=== PATIENT | female | born 1985 | race Caucasian/White ===

== ENCOUNTER 2021-01-12 22:16 | Emergency (ER) | payer OTHER ==
[~2021-01-12] VITALS: Ht 165.1 cm; Wt 61.2 kg
[2021-01-12] MEDS: IV NORMAL SALINE 1,000ML 1,000 ML IV ONE (23:29)
[2021-01-12] MEDS: ONDANSETRON PF 4 MG/2 ML VIAL. IVP ONE (23:29)
[2021-01-12] MEDS: FAMOTIDINE 20 MG/2 ML VIAL IVP ONE (23:30)
[2021-01-12] MEDS: KETOROLAC 15 MG/ML VIAL. IVP ONE (23:30)
[2021-01-12 23:37] LABS: BASO % 1 % (0-3); CALCIUM 8.9 mg/dL (8.5-10.1); CREATININE 0.5 mg/dL (0.6-1.0); EOS # 0.1 x10^3/uL (0.0-0.7); EOS % 3 % (0-3); GFR 140.4; HEMATOCRIT 36.7 % (36.0-47.0); HEMOGLOBIN 12.6 g/dL (12.0-15.5); LYMPH # 1.2 x10^3/uL (1.0-4.8); LYMPH % 22 % (24-48); MEAN CORPUSCULAR HEMOGLOBIN 32 pg (25-35); MEAN CORPUSCULAR HGB CONC 34 g/dL (31-37); MEAN CORPUSCULAR VOLUME 92 fL (79-100); MONO # 0.5 x10^3/uL (0.0-1.1); MONO % 9 % (0-9); NEUT # 3.5 x10^3uL (1.8-7.7); NEUT % 66 % (31-73); PLATELET COUNT 180 x10^3/uL (140-400); POTASSIUM 3.6 mmol/L (3.5-5.1); RED BLOOD COUNT 3.97 x10^6/uL (3.50-5.40); WHITE BLOOD COUNT 5.3 x10^3/uL (4.0-11.0)
[2021-01-12] MEDS ORDERED: IOHEXOL 240 MG/ML 50ML VIAL. ONE (23:38)
[2021-01-12 23:43] LABS: ALBUMIN/GLOBULIN RATIO 1.3 (1.0-1.7); TOTAL BILIRUBIN 0.2 mg/dL (0.2-1.0)
[2021-01-12 23:45] LABS: BACTERIA,URINE 0 /HPF (0-FEW); BILIRUBIN,URINE NEG (NEG); CLARITY,URINE CLEAR; COLOR,URINE YELLOW; GLUCOSE,URINE NEG (NEG); NITRITE,URINE NEG (NEG); RBC,URINE 0 /HPF (0-2); SQUAMOUS EPITHELIAL CELL,UR FEW /LPF; UROBILINOGEN,URINE 0.2 mg/dL (0.2 mg/dL); WBC,URINE RARE /HPF (0-4)
[2021-01-12] MEDS ORDERED: CONTRAST GIVEN. MC PRN (23:45)
--- NOTE | 2021-01-13 00:14 | PHYS DOC ---
Past History Additional Past Medical Histor: Brain tumor, complex partial seizures Past Surgical History: Other Additional Past Surgical Histo: Brain tumor removed - 2013 Smoking: Non-smoker Alcohol Use: None Drug Use: None General Adult EDM: Chief Complaint: ABDOMINAL PAIN HPI: HPI: 35-year-old female presents with 2-day history of right-sided abdominal discomfort with associated nausea. Denies known sick contacts. Denies fever or chills. Reports last p.o. at 1700. Patient reports does not have an appetite. Denies known exposure to COVID-19. Patient has received Moderna COVID-19 vaccinations x2. Reports having more solid stool today. Concerned for possible constipation. Denies taking any medications prior to arrival for pain. Review of Systems: Review of Systems: Constitutional: Denies fever or chills Eyes: Denies redness or eye pain HENT: Denies nasal congestion or sore throat Respiratory: Denies cough or shortness of breath Cardiovascular: Denies chest pain or palpitations GI: Reports right sided abdominal pain, constipation, and nausea; denies vomiting : Denies dysuria or hematuria Musculoskeletal: Denies back pain or joint pain Integument: Denies rash or skin lesions Neurologic: Denies headache, focal weakness or sensory changes Complete systems were reviewed and found to be within normal limits, except as documented in this note. Current Medications: Current Meds: Current Medications Medications (Trade) Dose Ordered Sig/Prabhakar Start Time Stop Time Status Last Admin Dose Admin Famotidine (Pepcid Vial) 20 mg 1X ONCE 01/12/21 23:30 01/12/21 23:31 DC 01/12/21 23:30 20 MG Info (Do NOT chart on this entry -- for MONITORING) 1 each PRN DAILY PRN 01/12/21 23:45 01/14/21 23:44 Iohexol (Omnipaque 240 Mg/ml) 50 ml STK-MED ONCE 01/12/21 23:38 01/12/21 23:38 DC Iohexol (Omnipaque 300 Mg/ml) 75 ml 1X ONCE 01/12/21 23:45 01/12/21 23:46 DC Ketorolac Tromethamine (Toradol 15mg Vial) 15 mg 1X ONCE 01/12/21 23:30 01/12/21 23:31 DC 01/12/21 23:30 15 MG Ondansetron HCl (Zofran) 4 mg 1X ONCE 01/12/21 23:30 01/12/21 23:31 DC 01/12/21 23:29 4 MG Sodium Chloride 1,000 ml @ 1,000 mls/hr 1X ONCE 01/12/21 23:30 01/13/21 00:29 01/12/21 23:29 1,000 MLS/HR Allergies: Allergies: Allergies Coded Allergies Type Severity Reaction Last Updated Verified Penicillins Allergy Unknown 01/12/21 Yes Physical Exam: PE: Constitutional: Well developed, well nourished, no acute distress, non-toxic appearance HENT: Normocephalic, atraumatic Eyes: Conjunctiva normal, no discharge Neck: Normal range of motion, supple Lungs & Thorax: No respiratory distress, equal chest rise and fall Abdomen: Soft, RLQ tenderness, McBurney's point positive, negative psoas sign Skin: Warm, dry, no erythema, no rash Back: No tenderness, no CVA tenderness Extremities: No tenderness, ROM intact, no edema Neurologic: Alert and oriented X 3, no focal deficits noted Psychologic: Affect normal, judgment normal Current Patient Data: Labs: Laboratory Tests Test 01/12/21 22:39 01/12/21 22:55 01/12/21 23:05 Urine Collection Type Unknown Urine Color Yellow Urine Clarity Clear Urine pH 7.5 Urine Specific Mccurtain 1.015 Urine Protein Neg (NEG-TRACE) Urine Glucose (UA) Neg mg/dL (NEG) Urine Ketones (Stick) Neg mg/dL (NEG) Urine Blood Trace (NEG) Urine Nitrite Neg (NEG) Urine Bilirubin Neg (NEG) Urine Urobilinogen Dipstick 0.2 mg/dL (0.2 mg/dL) Urine Leukocyte Esterase Neg (NEG) Urine RBC 0 /HPF (0-2) Urine WBC Rare /HPF (0-4) Urine Squamous Epithelial Cells Few /LPF Urine Bacteria 0 /HPF (0-FEW) White Blood Count 5.3 x10^3/uL (4.0-11.0) Red Blood Count 3.97 x10^6/uL (3.50-5.40) Hemoglobin 12.6 g/dL (12.0-15.5) Hematocrit 36.7 % (36.0-47.0) Mean Corpuscular Volume 92 fL (79-100) Mean Corpuscular Hemoglobin 32 pg (25-35) Mean Corpuscular Hemoglobin Concent 34 g/dL (31-37) Red Cell Distribution Width 13.0 % (11.5-14.5) Platelet Count 180 x10^3/uL (140-400) Neutrophils (%) (Auto) 66 % (31-73) Lymphocytes (%) (Auto) 22 % (24-48) L Monocytes (%) (Auto) 9 % (0-9) Eosinophils (%) (Auto) 3 % (0-3) Basophils (%) (Auto) 1 % (0-3) Neutrophils # (Auto) 3.5 x10^3uL (1.8-7.7) Lymphocytes # (Auto) 1.2 x10^3/uL (1.0-4.8) Monocytes # (Auto) 0.5 x10^3/uL (0.0-1.1) Eosinophils # (Auto) 0.1 x10^3/uL (0.0-0.7) Basophils # (Auto) 0.0 x10^3/uL (0.0-0.2) Sodium Level 131 mmol/L (136-145) L Potassium Level 3.6 mmol/L (3.5-5.1) Chloride Level 96 mmol/L (98-107) L Carbon Dioxide Level 31 mmol/L (21-32) Anion Gap 4 (6-14) L Blood Urea Nitrogen 10 mg/dL (7-20) Creatinine 0.5 mg/dL (0.6-1.0) L Estimated GFR (Cockcroft-Gault) 140.4 BUN/Creatinine Ratio 20 (6-20) Glucose Level 95 mg/dL (70-99) Calcium Level 8.9 mg/dL (8.5-10.1) Magnesium Level 2.0 mg/dL (1.8-2.4) Total Bilirubin 0.2 mg/dL (0.2-1.0) Aspartate Amino Transferase (AST) 13 U/L (15-37) L Alanine Aminotransferase (ALT) 22 U/L (14-59) Alkaline Phosphatase 59 U/L (46-116) Total Protein 7.0 g/dL (6.4-8.2) Albumin 4.0 g/dL (3.4-5.0) Albumin/Globulin Ratio 1.3 (1.0-1.7) Lipase 143 U/L (73-393) POC Urine HCG, Qualitative hcg negative (Negative) Vital Signs: Vital Signs Date Time Temp Pulse Resp B/P (MAP) Pulse Ox O2 Delivery O2 Flow Rate FiO2 01/13/21 00:01 62 16 116/81 (93) 100 Room Air 01/12/21 22:38 97.6 EKG: EKG: [] Radiology/Procedures: Radiology/Procedures: PROCEDURE: CT ABD PELV W/ORAL&IV CONTRAST EXAM: CT Abdomen and Pelvis with IV contrast CLINICAL HISTORY: Reason: RLQ sided abdominal pain, eval for acute appendicitis COMPARISON: none TECHNIQUE: Helical CT of the abdomen and pelvis was performed following the administration of intravenous contrast. Axial, coronal and sagittal reformatted images were generated. PQRS compliance statement - One or more of the following individualized dose reduction techniques were utilized for this study: 1. Automated exposure control 2. Adjustment of the mA and/or kV according to patient size 3. Use of iterative reconstruction technique FINDINGS: Lower Chest: Lung bases are clear. Abdomen and Pelvis: Mild periportal edema. Hepatic dome cyst. Hepatomegaly. Spleen is unremarkable. Adrenal glands are normal. Symmetric nephrograms. No focal renal lesion. No hydronephrosis. No hydroureter. IUD is seen within the uterus. Bladder is unremarkable. There is thickening/dilation of the appendix with periappendiceal infiltration. Associated para appendiceal infiltration is seen. No small or large bowel dilatation. No bowel obstruction. No abdominal or pelvic lymphadenopathy. No abdominal pelvic ascites. Bones: No aggressive osseous lesion is seen. IMPRESSION: Thickening and dilation of the appendix with periappendiceal infiltration consistent with acute appendicitis. Periportal edema is nonspecific. Findings discussed with Dr. Weinstein at 01/13/2021 1:15 AM. FOR INTERNAL CODING PURPOSES RESULT CODE: (C) Electronically signed by: Aayush Prasad MD (01/13/2021 1:17 AM) LISS Heart Score: C/O Chest Pain: N/A Course & Med Decision Making: Course & Med Decision Making Pertinent Labs and Imaging studies reviewed. (See chart for details) Patient presents with 2-day history of right-sided abdominal discomfort with associated nausea. There was concern for possible constipation per patient. Afebrile. Significant tenderness noted to right lower quadrant. Cannot exclude acute appendicitis. Labs obtained and posted to chart. WBC within normal limits. UA without signs of infection. Urine negative. Symptomatic treatment provided with Toradol and Zofran with interval improvement of symptoms. IV fluid hydration given. CT abdomen/pelvis obtained with findings consistent for acute appendicitis without perforation. Empiric antibiotic given. Patient requiring transfer to facility with general surgery capability. Discussed with nursing supervisor dog license officer at [facility] who reports no bed availability at this time. Utilize transfer line. Dr. Saskia Nagel (General Surgery) in agreement with transfer to for admission. Discussed findings and plan with patient and spouse, who acknowledge understanding and agreement. Roger Disclaimer: Roger Disclaimer: This electronic medical record was generated, in whole or in part, using a voice recognition dictation system. Departure Departure: Impression: Primary Impression: Acute appendicitis Qualified Codes: K35.80 - Unspecified acute appendicitis Disposition: 02 [facility] (- Dr. Sheridan Nagel (surgery) accept ing) Condition: STABLE Referrals: PCP,UNKNOWN (PCP) Critical Care Time Critical care time was 30 minutes which includes time at bedside, spent in discussion of patient's care with specialists and/or family members, with interpretation of laboratory and/or radiological studies and is exclusive of procedures. YUSUF WEINSTEIN DO Jan 13, 2021 00:14
[2021-01-13] MEDS: IOHEXOL 300 MG/ML 75 ML VIAL. IV ONE (00:40)
--- NOTE | 2021-01-13 01:20 | RAD ---
EXAM: CT Abdomen and Pelvis with IV contrast CLINICAL HISTORY: Reason: RLQ sided abdominal pain, eval for acute appendicitis COMPARISON: none TECHNIQUE: Helical CT of the abdomen and pelvis was performed following the administration of intrave nous contrast. Axial, coronal and sagittal reformatted images were generated. PQRS compliance statement - One or more of the following individualized dose reduction techniques wer e utilized for this study: 1. Automated exposure control 2. Adjustment of the mA and/or kV according to patient size 3. Use of iterative reconstruction technique FINDINGS: Lower Chest: Lung bases are clear. Abdomen and Pelvis: Mild periportal edema. Hepatic dome cyst. Hepatomegaly. Spleen is unremarkable. Adrenal glands are no rmal. Symmetric nephrograms. No focal renal lesion. No hydronephrosis. No hydroureter. IUD is seen wi thin the uterus. Bladder is unremarkable. There is thickening/dilation of the appendix with periappendiceal infiltration. Associated para appen diceal infiltration is seen. No small or large bowel dilatation. No bowel obstruction. No abdominal o r pelvic lymphadenopathy. No abdominal pelvic ascites. Bones: No aggressive osseous lesion is seen. IMPRESSION: Thickening and dilation of the appendix with periappendiceal infiltration consistent with acute appen dicitis. Periportal edema is nonspecific. Findings discussed with Dr. Reyes at 01/13/2021 1:15 AM. FOR INTERNAL CODING PURPOSES RESULT CODE: (C) Electronically signed by: Aayush Prasad MD (01/13/2021 1:17 AM) [facility]
[2021-01-13] MEDS ORDERED: IV NORMAL SALINE 50ML 50 ML ONE (02:22)
[2021-01-13] MEDS ORDERED: CEFEPIME HCL 1 GM VIAL ONE (02:22)
[2021-01-13] MEDS: CEFEPIME HCL 1 GM in IV NORMAL SALINE 50ML 50 ML IV ONE (02:27)
[2021-01-13 03:01] VITALS: BP 118/76
[2021-01-13] MEDS ORDERED: CEFEPIME HCL 1 GM in IV NORMAL SALINE 50ML 50 ML IV SCH (08:00)
== END 2021-01-13 03:42 | disposition short-term general hospital (02) ==
LOC: ER 22:16
DX: K35.80 Unspecified acute appendicitis (principal); Z88.0 Allergy status to penicillin; Z20.822 Contact with and (suspected) exposure to COVID-19
CPT/HCPCS: 36415; 74177; 80053; 81001; 81025; 83690; 83735; 85025; 87426; 96361; 96365; 96367; 96375; 99285; C9803; J0692; J1885; J2405; J3010; J3490; J7030; Q9967; U0003

== ENCOUNTER 2021-09-02 19:24 | Emergency (ER) | payer OTHER ==
[~2021-09-02] VITALS: Ht 165.1 cm; Wt 56.7 kg
[2021-09-02 19:50] VITALS: BP 135/78
--- NOTE | 2021-09-02 19:57 | PHYS DOC ---
Past History Additional Past Medical Histor: Brain tumor, complex partial seizures Past Surgical History: Other Additional Past Surgical Histo: Brain tumor removed - 2012 Smoking: Non-smoker Alcohol Use: None Drug Use: None General Adult EDM: Chief Complaint: CONGESTION HPI: HPI: Patient is a 36-year-old female who presents to the emergency department for nasal congestion, chest congestion, nonproductive cough, shortness of breath, nausea and sore throat that started 3 days ago. Patient had a negative at-home COVID test today. [place]. Patient denies any fevers, vomiting. Review of Systems: Review of Systems: Constitutional: See HPI HENT: See HPI Respiratory: See HPI GI: See HPI Allergies: Allergies: Allergies Coded Allergies Type Severity Reaction Last Updated Verified Penicillins Allergy Unknown 01/12/21 Yes Physical Exam: PE: Constitutional: Well developed, well nourished, no acute distress, non-toxic appearance. [] HENT: Normocephalic, atraumatic, bilateral external ears normal, oropharynx moist, no oral exudates, or pharyngeal erythema, cobblestoning noted, no tonsillar enlargement or exudate, postnasal drainage noted nose normal. [] Eyes: PERRL, EOMI, conjunctiva normal, no discharge. [] Neck: Normal range of motion, no tenderness, supple, no stridor. [] Cardiovascular:Heart rate regular rhythm, no murmur [] Lungs & Thorax: Bilateral breath sounds clear to auscultation [] Abdomen: Soft and flat Skin: Warm, dry, no erythema, no rash. [] Back: No tenderness, normal range of motion Extremities: No tenderness, no cyanosis, no clubbing, ROM intact, no edema. [] Neurologic: Alert and oriented X 3, normal motor function, normal sensory function, no focal deficits noted. [] Psychologic: Affect normal, judgement normal, mood normal. [] Current Patient Data: Labs: Laboratory Tests Test 09/02/21 20:40 Group A Streptococcus Rapid Negative EKG: EKG: [] Radiology/Procedures: Radiology/Procedures: []ROCEDURE: CHEST PA & LATERAL XR CHEST 2V Technique: PA and lateral views of the chest were obtained. Clinical History: Reason: soa, cough / Spl. Instructions: / History: Comparison: None. Findings: The heart and pulmonary vasculature appear within normal limits. The lungs are clear. The pleural margins are clear. There is left-sided nerve stimulator. Impression: No acute chest process is seen. Electronically signed by: Karen Moura III, MD (09/02/2021 8:29 PM) [facility] DICTATED AND SIGNED BY: KAREN MOUAR III, MD DATE: 09/02/212028 CC: MARGARITA ELISE APRN; PCP,UNKNOWN ~ Heart Score: C/O Chest Pain: N/A Risk Factors: Risk Factors: DM, Current or recent (<one month) smoker, HTN, HLP, family history of CAD, obesity. Risk Scores: Score 0 - 3: 2.5% MACE over next 6 weeks - Discharge Home Score 4 - 6: 20.3% MACE over next 6 weeks - Admit for Clinical Observation Score 7 - 10: 72.7% MACE over next 6 weeks - Early Invasive Strategies Course & Med Decision Making: Course & Med Decision Making Pertinent Labs and Imaging studies reviewed. (See chart for details) Patient presents to the emergency department for 3-day history of nasal congestion, chest congestion, nonproductive cough, sore throat, shortness of breath and nausea. Patient be tested for influenza, COVID and strep. Chest x- ray to rule out pneumonia performed. Strep test negative. CXR does not show any acute findings. Patient will be notified of her influenza and COVID testing when they become available. Patient will be discharged with a steroid to help with sinus inflammation. Educated on symptomatic treatment. Vital signs are stable. I discussed with patient all findings and diagnostic testing as well as the need to follow-up with PCP for further evaluation and treatment or return to the ER if any new or worsening symptoms. Strict return precautions were also discussed at length. Patient voiced understanding and agreement with the plan. Patient is hemodynamically stable at the time of disposition. Dragon Disclaimer: Dragon Disclaimer: This electronic medical record was generated, in whole or in part, using a voice recognition dictation system. Departure Departure: Impression: Primary Impression: Viral syndrome Disposition: HOME / SELF CARE / HOMELESS Condition: GOOD Referrals: PCP,UNKNOWN (PCP) Patient Instructions: Cough, Adult Additional Instructions: You were seen in the emergency department for sinus congestion, chest congestion, cough, shortness of breath. Your rapid strep test was negative. Your chest x-ray did not show any acute findings. We tested you for influenza and COVID and you will receive your results when they become available. You are being discharged home with a steroid Dosepak to help with sinus inflammation. You are also being discharged home with an albuterol inhaler that you can use for shortness of breath. You can use Mucinex [id number] and Flonase which is an intranasal steroid. Perform warm salt water gargles for your sore throat. Increase your fluids as this will thin your secretions. Take Tylenol and ibuprofen at home for any pain or fevers. Follow-up with your primary care provider on Sunday. Return to the emergency department if you develop shortness of breath, chest pain, high fevers refractory to treatment, intractable nausea or vomiting. Scripts Albuterol Sulfate (PROAIR HFA INHALER) 8.5 Gm Hfa.aer.ad 2 PUFF IH PRN Q4-6HRS PRN for wheezing for 21 Days, #1 INHALER 0 Refills as needed for wheezing Prov: MARGARITA ELISE APRN 09/02/21 Methylprednisolone (MEDROL) 4 Mg Tab.ds.pk 1 PKG PO UD for inflammation, #1 PKG 0 Refills Prov: MARGARITA ELISE APRN 09/02/21 MARGARITA ELISE APRN September 02, 2021 19:57
--- NOTE | 2021-09-02 20:32 | RAD ---
XR CHEST 2V Technique: PA and lateral views of the chest were obtained. Clinical History: Reason: soa, cough / Spl. Instructions: / History: Comparison: None. Findings: The heart and pulmonary vasculature appear within normal limits. The lungs are clear. The pleural ma rgins are clear. There is left-sided nerve stimulator. Impression: No acute chest process is seen. Electronically signed by: Naeem Moura III, MD (09/02/2021 8:29 PM) [facility]
[2021-09-02] MEDS ORDERED: METH4TAB2 PO (21:34)
[2021-09-02] MEDS ORDERED: ALBU2.5V8 IH (21:34)
== END 2021-09-02 21:45 | disposition home or self-care (01) ==
LOC: ER 19:24
DX: B34.9 Viral infection, unspecified (principal); Z88.0 Allergy status to penicillin
CPT/HCPCS: 71046; 87070; 87428; 87880; 99284

== ENCOUNTER 2021-09-08 17:51 | Emergency (ER) | payer OTHER ==
[~2021-09-08] VITALS: Ht 165.1 cm; Wt 56.7 kg
[~2021-09-08 17:51] MED LIST: ALBU2.5V8 IH; METH4TAB2 PO
--- NOTE | 2021-09-08 18:33 | PHYS DOC ---
Past History Additional Past Medical Histor: BRAIN TUMOR Past Surgical History: Appendectomy, Other Additional Past Surgical Histo: BRAIN TUMOR Smoking: Non-smoker Alcohol Use: None Drug Use: None General Adult EDM: Chief Complaint: COUGH HPI: HPI: ",.. I still coughing.. feel like my chest in congested.. .. a pneumonia.. I was here on the 09/02.. I on steroids .. taper.. on a MDI.. did a course of Azithromax.. and now on another antibiotic ( Keflex)(.. on Flonase....I do have an apt. with [facility] in 3 days.. it just I have a chronic cough..." Patient is a 36 year old female dependent who presents with above hx and complaints of continued cough. Has completed full course of Zithromax. Has been started on another course of antibiotics believed to be Keflex. Patient is still currently on a Medrol Dosepak. Patient has been using Flonase. Patient still complains and cough. Did review prior ED record on 09/02/2021 x-ray at that time showed no infiltrate or significant findings. Patient does have a history of allergies and does appear to have continued rhinorrhea and spite of her current Medrol Dosepak. Patient denies any travel. Patient denies any sick ill contacts. Patient did get COVID vaccination. Did get flu vaccination. During her ED visit patient sats remained between 99 and 100% for the entire visit. Patient does have a significant past medical history of a brain tumor removed in has had a nerve stimulator in place to prevent seizures 2010 at [facility]. Patient patient does have follow-up appointment this week at [facility]. Did discuss pt. findings with Pt. permission her sister Clover Ron- INSTRUCTOR ADJ[employer]CT SURGICAL TECHNICIAN. Review of Systems: Review of Systems: Constitutional: Denies fever or chills Eyes: Denies change in visual acuity HENT: Denies nasal congestion or sore throat Respiratory: Complains of cough Cardiovascular: Denies chest pain or edema GI: Denies abdominal pain, nausea, vomiting, bloody stools or diarrhea : Denies dysuria Musculoskeletal: Denies back pain or joint pain Integument: Denies rash Neurologic: Denies headache, focal weakness or sensory changes Endocrine: Denies polyuria or polydipsia Lymphatic: Denies swollen glands Psychiatric: Denies depression or anxiety Family History: Family History: Noncontributory to presentation Current Medications: Current Meds: See nursing for home meds Allergies: Allergies: Allergies Coded Allergies Type Severity Reaction Last Updated Verified Penicillins Allergy Unknown 01/12/21 Yes Physical Exam: PE: Constitutional: Well developed, well nourished, moderate acute distress, non- toxic appearance. [] HENT: Normocephalic, atraumatic, bilateral external ears normal, oropharynx moist, postnasal drainage, no oral exudates, nose: Turbinates and copious clear rhinorrhea, old surgical scar Eyes: PERRLA, EOMI, conjunctiva normal, no discharge. [] Neck: Normal range of motion, no tenderness, supple, no stridor. Scar on left side neck from neuro stimulator Cardiovascular:Heart rate regular rhythm, no murmur [] Lungs & Thorax: Bilateral breath sounds equal apex with few scattered wheezes on auscultation [. Has] left axillary neuro stimulator nerve pacer. Abdomen: Bowel sounds normal, soft, no tenderness, no masses, no pulsatile masses. [] Skin: Warm, dry, no erythema, no rash. [] Back: No tenderness, no CVA tenderness. [] Extremities: No tenderness, no cyanosis, no clubbing, ROM intact, no edema. No cording Neurologic: Alert and oriented X 3, normal motor function, normal sensory function, no focal deficits noted. [] Psychologic: Affect anxious, judgement normal, mood normal. [] EKG: EKG: [] Radiology/Procedures: Radiology/Procedures: Review prior chest x-ray Heart Score: C/O Chest Pain: N/A Risk Factors: Risk Factors: DM, Current or recent (<one month) smoker, HTN, HLP, family history of CAD, obesity. Risk Scores: Score 0 - 3: 2.5% MACE over next 6 weeks - Discharge Home Score 4 - 6: 20.3% MACE over next 6 weeks - Admit for Clinical Observation Score 7 - 10: 72.7% MACE over next 6 weeks - Early Invasive Strategies Course & Med Decision Making: Course & Med Decision Making Pertinent Labs and Imaging studies reviewed. (See chart for details) Patient continue current meds. Keep follow-up Fernando. Could add Benadryl 25-50 mg 4 times a day for copious nasal drainage and cough. Follow-up primary care as scheduled return if any concerns. Suspect a strong viral/allergy component for patient's symptoms. Impression: 1. Reactive Airway 2. Viral Syndrome vs Allergies 3. Brain Tumor- S/P removal 2012 4. Seizure Disorder- on nerve stimulator [] Dragon Disclaimer: Dragon Disclaimer: This electronic medical record was generated, in whole or in part, using a voice recognition dictation system. Departure Departure: Referrals: PCP,UNKNOWN (PCP) Roger Disclaimer This chart was dictated in whole or in part using Voice Recognition software in a busy, high-work load, and often noisy Emergency Department environment. It may contain unintended and wholly unrecognized errors or omissions. TEDDY PATRICK MD September 08, 2021 18:33
[2021-09-08 18:41] VITALS: BP 118/78
== END 2021-09-08 19:34 | disposition home or self-care (01) ==
LOC: ER 17:51
DX: J45.909 Unspecified asthma, uncomplicated (principal); G40.909 Epilepsy, unspecified, not intractable, without status epilepticus; Z88.0 Allergy status to penicillin
CPT/HCPCS: 99282